=== PATIENT | female | born 1930 | race Caucasian/White ===

== ENCOUNTER 2017-09-24 11:21 | Emergency (ER) | payer MEDICARE ==
[2017-09-24 12:13] LABS: #Basophils 0.1 thou/uL (0.0-0.2); #Eosinphils 0.2 thou/uL (0.0-0.7); #Lymphocytes 1.6 thou/uL (1.20-3.40); #Monocytes 0.6 thou/uL (0.11-0.59); #Neutrophils 3.2 thou/uL (1.40-6.50); %Basophils 1.1 % (0.0-1.0); %Eosinophils 3.6 % (0.0-10.0); %Lymphocytes 28.5 % (21.0-51.0); %Monocytes 9.7 % (0.0-10.0); Mean Platelet Volume 6.5 fL (7.4-10.4); Red Blood Cell (RBC) Count 4.28 mill/uL (4.20-5.40); White Blood Cell (WBC) Count 5.6 thou/uL (4.8-10.8)
[2017-09-24 12:18] LABS: PTT 32.6 SEC (22.9-36.1); Prothrombin Time 12.9 SEC (12.0-14.7)
[2017-09-24 12:35] LABS: Troponin I Less than 0.010 ng/mL (< 0.028)
[2017-09-24 12:37] LABS: ALT (SGPT) 18 U/L (8-55); AST (SGOT) 16 U/L (5-34); Alkaline Phosphatase 77 U/L (40-150); Anion Gap 10 mmol/L (10-20); BUN (Urea Nitrogen) 19 mg/dL (9.8-20.1); Bilirubin, Total 0.6 mg/dL (0.2-1.2); CK (CPK) 101 U/L (29-168); Calc. Creatinine Clearance 0 mL/min (70-130); Calcium 9.7 mg/dL (7.8-10.44); Carbon Dioxide 26 mmol/L (23-31); Chloride 107 mmol/L (98-107); Estimated GFR-MDRD 49; Globulin 3.3 g/dL (2.4-3.5); Protein, Total 7.6 g/dL (6.0-8.3)
--- NOTE | 2017-09-24 12:39 | RAD ---
CHEST ONE VIEW PORTABLE: History: 87-year-old female with dyspnea and low pulse rate this morning according to the patient, at 38 bpm. Comparison: 12-17-16 FINDINGS: Monitor leads overlie the chest. Dextroscoliosis of the thoracic spine with atherosclerosis of the a ivanna with some ectasia. Stable linear chronic changes bilaterally. Heart size is normal. No confluen t pneumonia or overt edema or pleural effusion. IMPRESSION: Stable chronic changes. POS: [facility]
[2017-09-24 13:23] LABS: Bilirubin Negative (Negative); Blood, Urine Negative (Negative); Glucose, Urine (Dipstick) Negative (Negative); Ketone, Urine Negative (Negative); Nitrite Negative (Negative); Protein, Urine (Dipstick) Negative (Neg-Trace); Urobilinogen 0.2 mg/dL (0.2-1.0)
[2017-09-24] MEDS ORDERED: cloNIDine 0.1 MG TAB ONE (13:53)
== END 2017-09-24 15:47 | disposition home or self-care (01) ==
LOC: ERS 11:21
DX: I10 Essential (primary) hypertension (principal); R00.1 Bradycardia, unspecified; E03.9 Hypothyroidism, unspecified; E78.5 Hyperlipidemia, unspecified
CPT/HCPCS: 36415; 71010; 80053; 81003; 82550; 82553; 83880; 84443; 84484; 85025; 85610; 85730; 93005

== ENCOUNTER 2018-02-10 04:36 | Emergency (ER) | payer MEDICARE ==
[2018-02-10 05:31] LABS: #Basophils 0.1 thou/uL (0.0-0.2); #Eosinphils 0.1 thou/uL (0.0-0.7); #Lymphocytes 1.5 thou/uL (1.20-3.40); #Monocytes 1.1 thou/uL (0.11-0.59); #Neutrophils 5.7 thou/uL (1.40-6.50); %Basophils 0.6 % (0.0-1.0); %Eosinophils 1.6 % (0.0-10.0); %Lymphocytes 17.9 % (21.0-51.0); %Monocytes 12.5 % (0.0-10.0); %Neutrophils 67.3 % (42.0-75.0); Hemoglobin 12.6 g/dL (12.0-16.0); Mean Corpuscular HGB CONC 34.2 g/dL (32.0-36.0); Mean Corpuscular Hemoglobin 30.9 pg (27.0-31.0); Mean Corpuscular Volume 90.4 fl (81.0-99.0); Mean Platelet Volume 6.4 fL (7.4-10.4); Platelet Count 244 thou/uL (130-400); RBC Distribution Width 12.4 % (11.5-14.5); Red Blood Cell (RBC) Count 4.09 mill/uL (4.20-5.40); White Blood Cell (WBC) Count 8.5 thou/uL (4.8-10.8)
[2018-02-10 05:44] LABS: ALT (SGPT) 16 U/L (8-55); AST (SGOT) 17 U/L (5-34); Albumin 4.5 g/dL (3.4-4.8); Alkaline Phosphatase 81 U/L (40-150); Anion Gap 13 mmol/L (10-20); BUN (Urea Nitrogen) 20 mg/dL (9.8-20.1); Bilirubin, Total 0.8 mg/dL (0.2-1.2); CK (CPK) 101 U/L (29-168); Calc. Creatinine Clearance 0 mL/min (70-130); Carbon Dioxide 24 mmol/L (23-31); Chloride 105 mmol/L (98-107); Estimated GFR-MDRD 68; Globulin 3.1 g/dL (2.4-3.5); Glucose 113 mg/dL (83-110); Potassium 3.8 mmol/L (3.5-5.1); Protein, Total 7.6 g/dL (6.0-8.3); Sodium 138 mmol/L (136-145)
[2018-02-10 05:48] LABS: CKMB 3.5 ng/mL (0-6.6); Troponin I Less than 0.010 ng/mL (< 0.028)
[2018-02-10 06:28] LABS: Bilirubin Negative (Negative); Blood, Urine Negative (Negative); Clarity CLEAR (Clear); Glucose, Urine (Dipstick) Negative (Negative); Leukocyte Negative (Negative); Nitrite Negative (Negative); Protein, Urine (Dipstick) Negative (Neg-Trace); Urobilinogen 0.2 mg/dL (0.2-1.0); pH, Urine 7.5 (5.0-9.0)
--- NOTE | 2018-02-10 08:30 | CT ---
ABDOMEN AND PELVIC CT SCAN WITH IV CONTRAST: History: 88-year-old female with history of abdominal pain and weakness. FINDINGS: There is some minimal patchy mostly pleural based linear and nodular parenchymal changes in primarily the right middle lobe and right lower lobe regions with some tiny pleural based nodules, all less th an 0.6 cm. A small hiatal hernia. 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 Extensive vascular calcifications. The liver and gallbladder and spleen and adrenal gla nds show no acute process. There is some scattered calcific changes within the pancreas with some tirado creatic volume loss in the tail of the pancreas which may well be related to old residual pancreatiti s. No renal calculus or acute obstruction. Generalized lumbar spondylosis with mild vertical heigh t loss of L1. No evidence of large or small bowel obstruction. No free intraperitoneal air. No mass, abscess, or adenopathy. Sigmoid colon diverticulosis without acute diverticulitis. IMPRESSION: No significant acute findings in the abdomen or pelvis. Some minimal primarily pleural based linear a nd nodular parenchymal changes, mostly in the right middle lobe and right lower lobe, nonspecific. 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 There is some volume los s and fatty replacement changes in the tail of the pancreas with some associated calcifications, prob ably related to residual from chronic pancreatitis. If the patient has abnormal pancreatic enzymes, then short term follow up study should certainly be c onsidered. Other findings as above. POS: [facility]
--- NOTE | 2018-02-10 08:31 | RAD ---
UPRIGHT PORTABLE CHEST 1 VIEW: Date: 02/10/18 HISTORY: 88-year-old female with history of weakness and fall after slipping on floor. COMPARISON: 09/24/17. FINDINGS: There is some generalized dextroscoliosis. Atherosclerosis of aorta. Monitor leads overlie the chest. Heart size is within normal limits. Increased linear and interstitial markings are noted bilaterally , which appear overall stable. IMPRESSION: Stable appearing chronic lung changes. Dextroscoliosis of the thoracic spine. Atherosclerosis of aort a. No evidence of pneumonia or other acute process. POS: [facility]
[2018-02-10] MEDS ORDERED: ISOVUE-370 76%-LOCM 1 ML ONE (16:28)
== END 2018-02-10 08:29 | disposition home or self-care (01) ==
LOC: ERS 04:36
DX: R53.1 Weakness (principal); R10.11 Right upper quadrant pain; E03.9 Hypothyroidism, unspecified; E78.5 Hyperlipidemia, unspecified; I10 Essential (primary) hypertension; Z79.899 Other long term (current) drug therapy
CPT/HCPCS: 71045; 74177; 80053; 81003; 82553; 84484; 85025; 93005

== ENCOUNTER 2018-05-08 08:03 | Emergency (ER) | payer MEDICARE ==
[2018-05-08] MEDS ORDERED: Hydrocodone-Acetamin 15 ML UDCUP ONE (08:37)
[2018-05-08] MEDS ORDERED: Lidocaine 4% Cream 5 GM TUBE w/ Tegaderm ONE (08:37)
[2018-05-08] MEDS ORDERED: Ondansetron ODT 4 MG TAB ONE (08:37)
--- NOTE | 2018-05-08 10:08 | RAD ---
RIGHT ELBOW 4 VIEWS: HISTORY: Fall. Right elbow injury. FINDINGS: Radiocapitellar alignment is maintained. Osseous structures are demineralized. Lateral view limited with incomplete flexion. Mild osteoarthritis. No displaced fractures or evidence of joint fluid. IMPRESSION: Osteoporosis. No acute osseous abnormalities are demonstrated. POS: [facility]
--- NOTE | 2018-05-08 10:10 | RAD ---
CHEST 1 VIE: HISTORY: Fall. Chest injury. COMPARISON: 02/10/18. FINDINGS: Cardiac silhouette magnified by projection. Pulmonary vasculature unremarkable. Mediastinum midline with aortic calcification. No lobar consolidation or evidence of pneumothorax. Rightward convex cu rvature of thoracic spine. IMPRESSION: Atherosclerosis. No active cardiopulmonary abnormalities otherwise demonstrated. POS: [facility]
--- NOTE | 2018-05-08 10:37 | RAD ---
RIGHT WRIST 3 VIEWS: HISTORY: Fall. Right wrist injury. FINDINGS: Scaphoid waist is intact. Small old ossific avulsion adjacent the ulnar styloid is well corticated. No acute fracture or dislocation. Osseous structures demineralized. Mild osteophytosis and joint s pace narrowing. IMPRESSION: 1. Osteoarthritis. Osteoporosis. 2. No acute osseous abnormalities are demonstrated. POS: [facility]
== END 2018-05-08 10:41 | disposition home or self-care (01) ==
LOC: ERS 08:03
DX: S51.801A Unspecified open wound of right forearm, initial encounter (principal); E03.9 Hypothyroidism, unspecified; E78.5 Hyperlipidemia, unspecified; I10 Essential (primary) hypertension; F32.9 Major depressive disorder, single episode, unspecified; W01.0XXA Fall on same level from slipping, tripping and stumbling without subsequent striking against object, initial encounter; Y93.01 Activity, walking, marching and hiking; Y92.121 Bathroom in nursing home as the place of occurrence of the external cause
CPT/HCPCS: 71045; Q0162

== ENCOUNTER 2018-05-09 09:42 | Inpatient (IN) | payer MEDICARE ==
[2018-05-09] MEDS ORDERED: Ondansetron ODT 8 MG TAB ONE (10:09)
[2018-05-09 10:13] LABS: #Eosinphils 0.1 thou/uL (0.0-0.7); #Lymphocytes 0.9 thou/uL (1.20-3.40); #Monocytes 0.9 thou/uL (0.11-0.59); #Neutrophils 7.6 thou/uL (1.40-6.50); %Basophils 0.5 % (0.0-1.0); %Eosinophils 1.2 % (0.0-10.0); %Lymphocytes 9.6 % (21.0-51.0); %Monocytes 9.2 % (0.0-10.0); %Neutrophils 79.5 % (42.0-75.0); Hemoglobin 12.9 g/dL (12.0-16.0); Mean Corpuscular HGB CONC 34.2 g/dL (32.0-36.0); Mean Corpuscular Volume 90.6 fl (81.0-99.0); Mean Platelet Volume 6.1 fL (7.4-10.4); Platelet Count 228 thou/uL (130-400); RBC Distribution Width 12.3 % (11.5-14.5); Red Blood Cell (RBC) Count 4.16 mill/uL (4.20-5.40); White Blood Cell (WBC) Count 9.5 thou/uL (4.8-10.8)
--- NOTE | 2018-05-09 10:21 | RAD ---
CHEST 1 VIEW: HISTORY: Dyspnea. Fall. COMPARISON: 05/08/18. FINDINGS: Cardiac silhouette magnified. Pulmonary vasculature unremarkable. Mediastinum midline with aortic c alcification. No lobar consolidation or evidence of pneumothorax. Lobulation of right hemidiaphragm . IMPRESSION: Chronic-type findings are stable. POS: [facility]
--- NOTE | 2018-05-09 10:59 | CT ---
CT HEAD NONCONTRAST: HISTORY: Fall. Head injury. Altered mental status. FINDINGS: There is no evidence of acute intracranial hemorrhage or infarct. Mild diffuse cortical atrophy and scattered chronic ischemic small-vessel disease. No mass effect or shift of midline structures. Pro minent calcification of the arterial structures. IMPRESSION: Atherosclerosis with chronic-type findings. No acute intracranial abnormalities are demonstrated on noncontrast CT head. POS: [facility]
[2018-05-09 11:01] LABS: ALT (SGPT) 23 U/L (8-55); AST (SGOT) 35 U/L (5-34); Albumin 4.4 g/dL (3.4-4.8); Alkaline Phosphatase 84 U/L (40-150); Anion Gap 14 mmol/L (10-20); BUN (Urea Nitrogen) 23 mg/dL (9.8-20.1); Bilirubin, Total 0.7 mg/dL (0.2-1.2); CK (CPK) 1143 U/L (29-168); Calc. Creatinine Clearance 0 mL/min (70-130); Calcium 9.5 mg/dL (7.8-10.44); Carbon Dioxide 22 mmol/L (23-31); Chloride 102 mmol/L (98-107); Estimated GFR-MDRD 47; Glucose 127 mg/dL (83-110); Potassium 4.3 mmol/L (3.5-5.1); Protein, Total 7.4 g/dL (6.0-8.3); Sodium 134 mmol/L (136-145)
[2018-05-09 11:04] LABS: CKMB 5.9 ng/mL (0-6.6); Troponin I Less than 0.010 ng/mL (< 0.028)
[2018-05-09 13:42] VITALS: BMI 26.7
[2018-05-09] MEDS: Dextrose 5 % And 0.9 % NaCl 1,000 ML IV SCH ×3 (14:18→22:18)
[2018-05-09] MEDS ORDERED: Polyethylene Glycol 3350 17 GM Packet PO PRN (15:45)
[2018-05-09 16:18] LABS: Bilirubin Negative (Negative); Blood, Urine Negative (Negative); Clarity CLEAR (Clear); Glucose, Urine (Dipstick) Negative (Negative); Leukocyte Negative (Negative); Nitrite Negative (Negative); Protein, Urine (Dipstick) Negative (Neg-Trace); Urobilinogen 0.2 mg/dL (0.2-1.0); pH, Urine 6.5 (5.0-9.0)
[2018-05-09] MEDS ORDERED: Atorvastatin Calcium 20 MG TAB PO SCH (16:30)
[2018-05-09] MEDS: Acetaminophen/Codeine 30-300mg Tablet PO PRN ×2 (16:40→21:52)
[2018-05-09] MEDS: Atorvastatin Calcium 20 MG TAB PO SCH (16:41)
--- NOTE | 2018-05-09 18:40 | RAD ---
RIGHT FOOT THREE VIEWS: History: Foot pain. Comparison: None. FINDINGS: Bones are mildly demineralized. Evidence of old ligamentous complex injury. Mild vascular calcificati ons. Small dorsal and plantar calcaneal spurs. Moderate dorsal soft tissue edema. IMPRESSION: No acute fracture or malalignment. POS: [facility]
--- NOTE | 2018-05-09 18:42 | ULT ---
ULTRASOUND CAROTID DOPPLER: History: Fall. Comparison: None. Technique: Ultrasound doppler with spectral analysis of the extracranial carotid arteries and vertebr al arteries was performed. FINDINGS: Moderate osteophytic plaque in both carotid bulbs. Antegrade flow both vertebral arteries. No elevate d peak systolic velocities. IMPRESSION: No evidence for hemodynamically significant stenosis. POS: [facility]
--- NOTE | 2018-05-09 18:43 | HP ---
DATE OF ADMISSION: 05/09/2018 PRIMARY CARE PHYSICIAN: Dr. Giovany Ramírez. CHIEF COMPLAINT: Falling, right arm pain, right foot pain. HISTORY OF PRESENT ILLNESS: This is an 88-year-old female patient with a history of hypertension, hyperlipidemia, chronic constipation, hypothyroidism who presented to the emergency department with her second fall in the last two days. The patient and daughter state that she has been in her usual state of health and has been doing quite well until 2 days ago when she got up in the middle of the night to go to the bathroom and had a fall. The patient denied any dizziness or lightheadedness prior to the fall. She got up at about 3:00 a.m. to go to the bathroom and usually she does this on a regular basis. She was holding onto a railing when she must have taken too big of a step, lost her balance, pulled the shower curtain down and fell to the floor. She was unable to press her medical alert button. She had a difficult time getting back up and going to the bathroom. She states that she was on the floor at that time for about 45 minutes, was able to scoot herself to the bed and went back to sleep. She suffered right arm contusion, a skin tear of her right forearm, but does not seek medical care at that time. She is feeling much better when she woke up in the morning. She took her morning medicines, but when she was standing up to go to the kitchen to make breakfast, she felt dizzy and once again fell to the ground. She denied loss of consciousness, denied hitting her head on anything. She did state that she knocked over a stool on her way down and laid on the floor. She lives in assisted living. She was trying to get assistance from the staff to help her up, they were unable to open the door. Again, her medical alert button was not functioning. She was trying to push it at that time and it did not seek assistance for her. The patient states that it took about an hour for them to open her door and at that time. She had been lying there. She again denied any loss of consciousness, denied headache. She continued to complain of pain on her right arm and right shoulder. In the emergency department, she had an evaluation. She had a relatively normal workup with normal chest x-ray, normal brain CT, normal arm and wrist x-ray. She did have elevated CPK on her labs consistent with rhabdomyolysis and she is now being admitted for further evaluation and treatment. PAST MEDICAL HISTORY: Hypertension, hyperlipidemia, hypothyroidism, history of chronic constipation with a workup done in the past. She usually does not take any pain medicines. She was last seen by Dr. Ramírez about 2-3 months ago for her constipation. MEDICATIONS: Include aspirin 81 mg at bedtime, Lipitor 20 mg daily, Synthroid 75 mcg daily, Procardia XL 60 mg twice a day. ALLERGY: List is extensive. Please see the chart. PAST SURGICAL HISTORY: Includes a left foot repair, history of appendectomy. SOCIAL HISTORY: She lives in [facility] assisted living. No alcohol, no drug use. No history of smoking in the past. FAMILY HISTORY: Negative for history of syncope, coronary artery disease, stroke, cancer. No history of diabetes. REVIEW OF SYSTEMS: As per the history of present illness. Denies any recent fevers, chills or recent illness. HEENT: Denies headache, visual or hearing changes. Cardiac: Denies chest pain, shortness of breath or palpitations. Pulmonary: Denies cough, hemoptysis or shortness of breath. Gastrointestinal: Chronic constipation. Denies nausea and vomiting. She has episodes of abdominal pain when she is more constipated. No melena, hematochezia. Genitourinary: No history of urinary tract infection, no hematuria, no dysuria. Neurologic: Positive for frequent falls, denies seizures, chronic headaches, denies weakness. Psychiatric: Denies history of depression or anxiety. PHYSICAL EXAMINATION: VITAL SIGNS: Temperature 97.7, pulse of 72, respirations 20, blood pressure 164 /71, pulse ox is 92% on room air. GENERAL: She is awake and alert, in no acute distress. Speech is clear and fluent. Mucosa is moist. NECK: Supple, no bruits. BACK: right upper back and trunk with area of ecchymosis and tenderness. 3-4 cm area consistent with a hematoma on right upper back CARDIOVASCULAR: Regular rate and rhythm with 3/6 systolic ejection murmur at the right sternal border. LUNGS: Clear bilaterally. ABDOMEN: Obese, soft, nontender, nondistended. No hepatosplenomegaly. EXTREMITIES: She has swelling on the dorsum of her right foot with edema of all of her toes and ecchymosis on the dorsum of her middle toe as well as great toe on the right. Tender to palpate, decreased range of motion of her great toe and middle toe as well. Skin with large skin tear on her right arm with ecchymosis, tenderness in her right shoulder as well as her right upper arm and right forearm. NEUROLOGIC: Cranial nerves II-XII are intact. Strength is otherwise 5/5 bilaterally in upper and lower extremities. LABORATORY DATA: Sodium 134, potassium 4.3, chloride 102, CO2 of 22, BUN and creatinine 23 and 1.09 with a GFR of 47, serum glucose of 127, AST and ALT are normal. CPK elevated at 1143. Cardiac enzymes are negative. Albumin of 4.4. White blood cell count 9500, hemoglobin and hematocrit 12.9 and 37.7, platelets of 228. X-rays as described above. A brain CT showed atherosclerosis but no acute abnormalities, a noncontrast CT of the brain. Chest x-ray showed no active disease, no rib fractures that were seen. ASSESSMENT AND PLAN: This is an 88-year-old female with history of hypertension , hyperlipidemia, and hypothyroidism, now with 2 days of frequent falling and now with acute rhabdomyolysis. 1. Rhabdomyolysis. We will continue gentle IV hydration and continue to follow her CPK levels as well as her renal function. 2. Frequent falls. We will initiate PT, OT evaluation as well as inpatient rehabilitation placement when she is able to leave the hospital for strength training, and balance training. 3. We will check carotid Dopplers to rule out carotid stenosis due to her history of hypertension and hyperlipidemia. 4. Chronic constipation. We will start Colace daily since she is going to be taking pain medicines as well as MiraLax p.r.n. for acute on chronic constipation. 5. Right foot pain. We will check x-ray of the foot. She may need a walking boots. 6. Code status. Patient desires DNR. MTDD
--- NOTE | 2018-05-09 18:54 | RAD ---
LEFT HIP TWO VIEWS: History: Fall, pain. Comparison: CT examination 02-10-18. FINDINGS: Exam is limited due to body habitus. No acute displaced fracture or malalignment. Mild narrowing. The obturator rings appear to be intact. IMPRESSION: Limited examination due to technique. No displaced fracture appreciated. POS: [facility]
[2018-05-09] MEDS: Aspirin 81 mg Enteric Coated Tablet PO SCH (21:52)
[2018-05-09] MEDS: Docusate 100 MG CAP PO SCH (21:52)
[2018-05-10 04:36] LABS: ALT (SGPT) 17 U/L (8-55); AST (SGOT) 22 U/L (5-34); Albumin 3.4 g/dL (3.4-4.8); Alkaline Phosphatase 65 U/L (40-150); Anion Gap 11 mmol/L (10-20); BUN (Urea Nitrogen) 19 mg/dL (9.8-20.1); Bilirubin, Total 0.5 mg/dL (0.2-1.2); CK (CPK) 575 U/L (29-168); Calc. Creatinine Clearance 50 mL/min (70-130); Calcium 8.4 mg/dL (7.8-10.44); Carbon Dioxide 23 mmol/L (23-31); Chloride 106 mmol/L (98-107); Estimated GFR-MDRD 63; Globulin 2.2 g/dL (2.4-3.5); Glucose 103 mg/dL (83-110); Potassium 3.9 mmol/L (3.5-5.1); Protein, Total 5.6 g/dL (6.0-8.3); Sodium 136 mmol/L (136-145)
--- NOTE | 2018-05-10 08:03 | PRG ---
DATE OF SERVICE: 05/10/2018 SUBJECTIVE: Ms. Najera is awake and alert. She describes various aches and pains about her body. S he adamantly denies any syncopal episode occurred prior to admission. PHYSICAL EXAMINATION: VITAL SIGNS: Temperature 97.8, BP 177/88. LUNGS: Clear. HEART: Reveals no murmur. LABORATORY: Hemoglobin 12.9, hematocrit 37.7. Chemistry: Sodium 136, potassium 3.9, chloride 106, CO2 23, BUN 19, creatinine 0.85. Creatine kinase is 575. Urinalysis is otherwise clear. Hip x-ray is negative. Foot x-ray is negative. Carotid Doppler ultrasound is normal. Chest x-ray is normal. No fractures are identified. IMPRESSION: This patient has fallen, who now has multiple bruises. She had elevated creatine kinase , which is improving. PLAN: I have discussed the findings with the patient and her daughter at the bedside. We will wait and see if she could qualify for some type of rehab placement. Otherwise, I advised the patient and family may need to look at other living arrangements.
[2018-05-10] MEDS: NIFEdipine XL 60 MG TAB PO SCH ×2 (08:58→20:57)
[2018-05-10] MEDS: Levothyroxine Sodium 75 MCG TAB PO SCH (08:58)
[2018-05-10] MEDS: Docusate 100 MG CAP PO SCH ×3 (08:58→22:51)
[2018-05-10] MEDS: Dextrose 5 % And 0.9 % NaCl 1,000 ML IV SCH ×2 (08:59→15:55)
[2018-05-10] MEDS: cloNIDine 0.1 MG TAB PO PRN ×3 (12:39→15:49)
[2018-05-10] MEDS: Atorvastatin Calcium 20 MG TAB PO SCH (14:14)
[2018-05-10] MEDS: Acetaminophen/Codeine 30-300mg Tablet PO PRN (18:16)
[2018-05-10] MEDS ORDERED: Bisacodyl 10 MG SUPP PR PRN (18:24)
[2018-05-10] MEDS: Aspirin 81 mg Enteric Coated Tablet PO SCH (20:57)
[2018-05-11 05:19] LABS: Anion Gap 13 mmol/L (10-20); BUN (Urea Nitrogen) 11 mg/dL (9.8-20.1); CK (CPK) 402 U/L (29-168); Calc. Creatinine Clearance 62 mL/min (70-130); Calcium 8.9 mg/dL (7.8-10.44); Carbon Dioxide 22 mmol/L (23-31); Chloride 108 mmol/L (98-107); Estimated GFR-MDRD 80; Glucose 110 mg/dL (83-110); Potassium 3.6 mmol/L (3.5-5.1); Sodium 139 mmol/L (136-145)
[2018-05-11] MEDS: NIFEdipine XL 60 MG TAB PO SCH ×2 (08:05→20:59)
[2018-05-11] MEDS: Levothyroxine Sodium 75 MCG TAB PO SCH (08:05)
[2018-05-11] MEDS: Docusate 100 MG CAP PO SCH ×2 (08:05→20:59)
--- NOTE | 2018-05-11 08:21 | PRG ---
DATE OF SERVICE: 05/11/2018 Ms. Najera is still complaining of pain and discomfort, although she is doing well otherwise. PHYSICAL EXAMINATION: VITAL SIGNS: BP is 142/65, temperature 98.4. LUNGS: Clear. HEART: Reveals no murmur. LABORATORY: Her CK is now down to 402 with normal electrolyte profile otherwise noted. IMPRESSION: Fall with multiple contusions and resolving rhabdomyolysis. PLAN: The patient has agreed to go to outpatient rehab for further rehabilitation. I am in agreemen t with this. Today if can be obtained she can be discharged medically today.
[2018-05-11] MEDS: Atorvastatin Calcium 20 MG TAB PO SCH (15:47)
[2018-05-11] MEDS: Aspirin 81 mg Enteric Coated Tablet PO SCH (20:59)
[2018-05-12] MEDS: NIFEdipine XL 60 MG TAB PO SCH ×2 (08:25→20:56)
[2018-05-12] MEDS: Levothyroxine Sodium 75 MCG TAB PO SCH (08:25)
[2018-05-12] MEDS: Docusate 100 MG CAP PO SCH ×2 (08:25→20:58)
--- NOTE | 2018-05-12 08:53 | PRG ---
DATE OF SERVICE: 05/12/2018 SUBJECTIVE: Ms. Najera is awake and alert this morning. She still is having some pain with walking. The family and her have decided that they would like to try go into rehab rather than discharge ho me. PHYSICAL EXAMINATION: VITAL SIGNS: Blood pressure 172/77, pulse 61 and regular, temperature 98.7. GENERAL: She is alert, active, in no distress. LUNGS: Clear. HEART: Reveals regular rate and rhythm without murmurs. LABORATORY: No new lab is noted. IMPRESSION: Status post fall. PLAN: We are waiting for final disposition. She would like to try to go to rehab. If she cannot go to rehabilitation she has told me she will not enter a detention facility, that she will proba tomas discharge back to home with home health and physical therapy.
[2018-05-12] MEDS: Atorvastatin Calcium 20 MG TAB PO SCH (15:01)
[2018-05-12] MEDS: Acetaminophen/Codeine 30-300mg Tablet PO PRN ×2 (15:57→20:58)
[2018-05-12] MEDS: Aspirin 81 mg Enteric Coated Tablet PO SCH (20:57)
[2018-05-13] MEDS: Docusate 100 MG CAP PO SCH (08:24)
[2018-05-13] MEDS: NIFEdipine XL 60 MG TAB PO SCH (08:24)
[2018-05-13] MEDS: Levothyroxine Sodium 75 MCG TAB PO SCH (10:20)
--- NOTE | 2018-05-13 10:47 | PRG ---
DATE OF SERVICE: 05/13/2018 SUBJECTIVE: Ms. Najera is doing well. She actually walked 160 feet yesterday with physical therapy. PHYSICAL EXAMINATION: VITAL SIGNS: Blood pressure is 133/66, temperature 98.2. LUNGS: Clear. HEART: Reveals no murmur. IMPRESSION: Fall with weakness. PLAN: The patient probably will not qualify for rehabilitation. I have notified the patient's famil y of this. We will still await and see what insurance says; however, I feel like she is able to be d ischarged home with home health and physical therapy. import export manager will take the lead on this and he lp us determine this.
[2018-05-13 10:53] VITALS: TEMP 98.1
[2018-05-13] MEDS: Atorvastatin Calcium 20 MG TAB PO SCH (14:15)
[2018-05-13] MEDS: Acetaminophen/Codeine 30-300mg Tablet PO PRN (14:19)
[2018-05-13 16:06] VITALS: BP 164/67
== END 2018-05-13 17:31 | disposition home health service (06) | DRG 558 ==
LOC: ERS 09:42 → 2SW 11:42 → OBSVTOIN 15:45 → 2NO 17:30 → T4-B 05-12 13:36
PROVIDERS: ADMIT Family Medicine; ATTEND Family Medicine
DX: M62.82 Rhabdomyolysis (principal); I10 Essential (primary) hypertension; E78.5 Hyperlipidemia, unspecified; R55 Syncope and collapse; E03.9 Hypothyroidism, unspecified; S40.021A Contusion of right upper arm, initial encounter; M79.671 Pain in right foot; K59.09 Other constipation; Z91.81 History of falling; Z66 Do not resuscitate; W18.11XA Fall from or off toilet without subsequent striking against object, initial encounter; Y92.009 Unspecified place in unspecified non-institutional (private) residence as the place of occurrence of the external cause
CPT/HCPCS: 36415; 51701; 70450; 71045; 80048; 80053; 81003; 82550; 82553; 84484; 85025; 93005; 93880; 96374; A4353; G8978-GP-CL; G8979-GP-CJ; G8987-GO-CK; G8988-GO-CI; J2270; Q0162